=== PATIENT | male | born 1990 | race Caucasian/White ===

== ENCOUNTER → 2017-07-04 | Day surgery (SDC) | payer OTHER ==
[2017-06-24 10:56] VITALS: Ht 180.3 cm; Wt 72.7 kg
[~2017-07-04] VITALS: Ht 180.3 cm; Wt 72.7 kg
[~2017-07-04] MED LIST: ATROPINE SULFATE 0.1 MG/ML 5ML SYR IV PRN; BUPIVACAINE/EPINEPHRINE 0.5% MPF 1:200,000 10 ML VIAL ONE; CEFAZOLIN 2000 MG/60 ML D5W IV SCH; DEXAMETHASONE SOD INJ 4 MG/ML VIAL ONE; EpHEDrine SULFATE INJ 50 MG/ML AMP IV PRN; FENTANYL CITRATE INJ 50 MCG/1 ML 2 ML VIAL ONE; HYDR-5688 PO; HYDROCODONE/ACETAMOPHEN 5/325MG TAB PO PRN; HYDROmorphone INJ 2 MG/ML SYR/VIAL IV PRN; KETOROLAC TROMETHAMINE 30 MG/ML VIAL ONE; LACTATED RINGER'S 1000ML 1,000 ML IV SCH; LIDOCAINE HCL 2% 2 ML VIAL (20MG/ML) ONE; MIDAZOLAM HCL 1 MG/ML 2ML VIAL ONE; ONDANSETRON INJ 2 MG/ML 2 ML VIAL IV PRN; ONDANSETRON INJ 2 MG/ML 2 ML VIAL ONE; PHENYLEPHRINE 100MCG/ML 5ML SYR IV PRN; PROPOFOL IV EMULSION 10 MG/ML 20 ML VIAL IV ONE; SODIUM CHLORIDE 0.9% 1000ML 1,000 ML IV SCH
--- NOTE | 2017-07-04 06:59 | History & Physical Bridge Note ---
H&P Re-Evaluation Bridge Note: I have examined the patient, reviewed the History & Physical and in the interval since the performance of the History & Physical I have noted the following changes of clinical significance: No changes noted
--- NOTE | 2017-07-04 08:15 | [facility] Operative Report ---
Operative Report Operative Date Jul 04, 2017. Pre-Operative Diagnosis Right Inguinal Hernia Post-Operative Diagnosis direct and indirect right inguinal hernias Procedure(s) Performed Right Inguinal Hernia Open Repair With Mesh;ilioinguinal neurolysis Surgeon Dr. Harris Guest Experience Captain Surgeon(s) Gurwinder Medrano PA-C Estimated Blood Loss 5 ml Findings small direct, chronic indirect RIH Specimens None Anesthesia LMA Complication(s) None Disposition Recovery Room / PACU I attest to the content of the Intraoperative Record and any orders documented therein. Any exceptions are noted below.
--- NOTE | 2017-07-04 08:21 | Discharge Instructions-SurgCtr ---
Discharge Instructions Date of Service Jul 04, 2017. Visit Reason for Visit: Right Inguinal Hernia Discharge Discharge Diagnosis / Problem: Right Inguinal Hernia Discharge Goals Goal(s): Decrease discomfort, Improve function Activity Recommendations Activity Limitations: as noted below Lifting Limitations: no more than 10 pounds Exercise/Sports Limitations: until after follow-up appointment May Resume Sexual Activity: after follow-up appointment Shower/Bathe: tomorrow Driving or Machine Use: resume 1 day after discharge Anesthesia . Post Anesthesia Instructions: If you have had General Anesthesia or IV Sedation: * Do not drive today. * Resume driving when surgeon permits. * Do not make important decisions or sign legal documents today. * Call surgeon for: 1. Temperature elevations greater than 101 degrees F. 2. Uncontrollable pain. 3. Excessive bleeding. 4. Persistent nausea and vomiting. 5. Medication intolerance (nausea, vomiting or rash). * For nausea and vomiting use only clear liquids such as: tea, soda, bouillon until nausea subsides, then gradually increase diet as tolerated. * If you have any concerns or questions, call your surgeon's office. If physician is unavailable and it is an emergency, call 911 or go to the nearest emergency room. . Instructions / Follow-Up Instructions / Follow-Up Please follow-up with Dr. Harris in the office in 1-2 weeks. Please call the office at [phone] to make an appointment if you do not have one already. Please call the office with any questions or concerns. Diet Recommendations Home Diet: no limitations, resume previous diet Procedures Procedures Performed: Right Inguinal Hernia Open Repair With Mesh;ilioinguinal neurolysis Pending Studies Studies pending at discharge: no Medical Emergencies . Who to Call and When: Medical Emergencies: If at any time you feel your situation is an emergency, please call 911 immediately. . Non-Emergent Contact Non-Emergency issues call your: Primary Care Provider, Surgeon Call Non-Emergent contact if: temperature is above 101.5, your pain is not controlled, wound has increased drainage, wound has increased redness . . "Provider Documentation" section prepared by Pamela Medrano. . [place] Drug Monitoring Program Search Results: patient reviewed within database, no issues identified
--- NOTE | 2017-07-04 08:30 | OPERATIVE REPORT ---
DATE OF OPERATION: 07/04/2017 PREOPERATIVE DIAGNOSIS: Right inguinal hernia. POSTOPERATIVE DIAGNOSIS: Small direct and chronic indirect right inguinal hernias. PROCEDURE: Open right inguinal hernia repair with mesh as well as ilioinguinal neurolysis. SURGEON: Dr. Harris. MICROFILM DUPLICATING UNIT SUPERVISOR: Pamela Medrano PA-C. ESTIMATED BLOOD LOSS: Approximately 5 mL. COMPLICATIONS: No immediate. ANESTHESIA: Laryngeal mask airway. OPERATIVE NOTE: After informed consent was obtained, the patient was taken to the operating suite, placed in supine position. After successful placement of laryngeal mask airway the right groin was shaved and sterilely prepped and draped in usual fashion. An inguinal incision was made with a 15 blade scalpel and carried down through the soft tissue using electrocautery. The external oblique aponeurosis was skeletonized and opened with a fresh blade. Metzenbaum scissors were used to extend this distally through the external ring as well as for several centimeters proximally. Once in the inguinal canal, we used blunt finger dissection to free up the cord and cord structures. A gentle finger dissection was used to elevate the cord structures off the pubic bone. A [place] drain was placed around it. Immediately upon doing this, we noticed a small direct inguinal hernia. It was easily reducible. We then examined the cord itself. There was a chronic hernia sac. We had to use small amounts of electrocautery as well as traction countertraction to tease the hernia sac off the cord and cord structures. We were able to identify the vas deferens to keep it out of harm's way. Eventually we were able to dissect the hernia sac back to its neck and then it easily dunked back down into the abdominal cavity. We thoroughly irrigated the wound, there was adequate hemostasis. We did identify the ilioinguinal nerve and we sharply lysed it to help prevent future nerve entrapment. We thoroughly irrigated the wound a final time and then used a piece of polypropylene sexton-holed mesh as an onlay. It was secured distally to Leonardo's ligament, laterally along the shelving portion of Poupart's ligament and medially along the midline musculature. The "arms" of the mesh were wrapped around behind the cord structures and secured to underlying muscle. We used 0 Ethibond for the sutures. The mesh laid nice and tension free and did not appear to impinge on the cord itself. We used some Marcaine with epinephrine to inject around the edges of the mesh for postoperative analgesia. Final irrigation was performed. We then closed the external oblique aponeurosis with 2-0 Vicryl in a running fashion. Soft tissue was irrigated and closed using 3-0 Vicryl and 4-0 Monocryl for skin. Some additional Marcaine was injected around the skin and skin glue used as a dressing. The patient was awakened, extubated, and transferred to recovery in stable condition. I attest to the content of the Intraoperative Record and any orders documented therein. Any exception s are noted below.
--- NOTE | 2017-07-04 09:00 | Anesthesia Progress Nt - [facility] ---
Anesthesia Post Op Note Date & Time Jul 04, 2017 at 09:00 Vital Signs Pain Intensity: 1 Vital Signs Past 12 Hours Date Time Temp Pulse Resp B/P (MAP) Pulse Ox O2 Delivery O2 Flow Rate FiO2 07/04/17 08:43 113/68 07/04/17 08:42 62/49 07/04/17 08:41 67 17 99 07/04/17 08:41 36.9 67 15 113/68 98 Room Air 07/04/17 08:41 64 17 07/04/17 08:36 53 16 07/04/17 08:36 51 16 107/61 99 07/04/17 08:31 52 13 99 07/04/17 08:31 52 13 07/04/17 08:30 111/66 07/04/17 08:26 53 15 07/04/17 08:26 52 15 99 07/04/17 08:25 107/69 07/04/17 08:21 67 14 114/66 100 07/04/17 08:21 65 14 07/04/17 08:17 114/72 07/04/17 08:16 36.4 61 16 114/72 99 Mask 6 07/04/17 06:28 36.6 64 16 126/78 (94) 99 Room Air Notes Mental Status: alert / awake / arousable, participated in evaluation Pt Amnestic to Procedure: Yes Nausea / Vomiting: adequately controlled Pain: adequately controlled Airway Patency, RR, SpO2: stable & adequate BP & HR: stable & adequate Hydration State: stable & adequate Anesthetic Complications: no major complications apparent
[2017-07-04 09:45] VITALS: BP 115/78; PULSE 58; TEMP 36.6; O2SAT 99
== END | disposition home or self-care (01) ==
LOC: X.SURG 06:19
PROVIDERS: ATTEND Surgery
DX: K40.90 Unilateral inguinal hernia, without obstruction or gangrene, not specified as recurrent (principal); Z82.49 Family history of ischemic heart disease and other diseases of the circulatory system; Z83.3 Family history of diabetes mellitus